=== PATIENT | male | born 1980 | race Caucasian/White ===

== ENCOUNTER 2018-11-24 22:37 | Emergency (ER) | payer SELFPAY ==
[2018-11-24 22:41] VITALS: BP 131/86; PULSE 112
[2018-11-24] MEDS ORDERED: Sodium Chloride 0.9% 10 ML Syringe FLUSH PRN (23:03)
--- NOTE | 2018-11-24 23:10 | EDM.PDOC ---
ED HPI GENERAL MEDICAL PROBLEM - General Chief Complaint: Neuro Symptoms/Deficits Stated Complaint: not feeling well Time Seen by Provider: 11/24/18 22:45 Source of Information: Reports: Patient History Limitations: Reports: No Limitations - History of Present Illness INITIAL COMMENTS - FREE TEXT/NARRATIVE: Patient is a 37-year-old who drove himself into the ER not feeling well states that he had not felt well all day was going to work and when he was driving from home to work felt that he could not make it and stopped in the ER at this time he states he's just not feeling well denies chest pain does have some shortness of breath but he states that is normal for him denies abdominal pain has had diarrhea for the last few days Onset: Gradual Duration: Day(s):, Getting Worse Location: Reports: Generalized Quality: Reports: Ache, Dull Severity: Moderate Improves with: Reports: None Worsens with: Reports: None Associated Symptoms: Reports: No Other Symptoms - Related Data Allergies Allergy/AdvReac Type Severity Reaction Status Date / Time No Known Allergies Allergy Verified 12/30/15 12:05 Home Meds: Home Meds Albuterol [Ventolin HFA] 2 inh INH Q4HR PRN 11/02/15 [History] Albuterol/Ipratropium [DuoNeb 3.0-0.5 MG/3 ML] 1 dose INH QID PRN 12/08/15 [ History] Lisinopril 20 mg PO DAILY 11/24/18 [History] Past Medical History HEENT History: Reports: Allergic Rhinitis Other HEENT History: Patient does wear glasses, Previous use of contact lenses, 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 c/o change in bowel habits, abdominal bloating, and lower abdominal pain. Genitourinary History: Reports: STD, Other (See Below) Other Genitourinary History: Chlamydia previously treated at age 16 Musculoskeletal History: Reports: Arthritis, Back Pain, Chronic, Fracture, Osteoarthritis, Other (See Below) Other Musculoskeletal History: Right ankle fracture with surgery as below at about age 14, chronic low back pain with mild L4-L5 disc prolapse by MRI 2008 Neurological History: Reports: None Psychiatric History: Reports: None Endocrine/Metabolic History: Reports: None Immunologic History: Reports: None Oncologic (Cancer) History: Reports: None Dermatologic History: Reports: None - Infectious Disease History Infectious Disease History: Reports: Chicken Pox - Past Surgical History HEENT Surgical History: Reports: Oral Surgery, Other (See Below) Male Surgical History: Reports: Circumcision, Other (See Below) - Past Imaging History Past Imaging History: Reports: MRI (Lumbar spine on 05/20/07) Social & Family History - Family History GI: Reports: None - Caffeine Use Caffeine Use: Reports: Energy Drinks, Soda - Living Situation & Occupation Living situation: Reports: Single, with Family Occupation: Employed ED ROS GENERAL - Review of Systems Review Of Systems: See Below Constitutional: Reports: Fatigue HEENT: Reports: No Symptoms Respiratory: Reports: Shortness of Breath Endocrine: Reports: No Symptoms GI/Abdominal: Reports: Nausea : Reports: No Symptoms Musculoskeletal: Reports: No Symptoms Skin: Reports: No Symptoms Neurological: Reports: No Symptoms Psychiatric: Reports: No Symptoms Hematologic/Lymphatic: Reports: No Symptoms Immunologic: Reports: No Symptoms ED EXAM, GENERAL - Physical Exam Exam: See Below Exam Limited By: No Limitations General Appearance: Alert, WD/WN, No Apparent Distress Ears: Normal External Exam, Normal Canal, Hearing Grossly Normal, Normal TMs Ear Exam: Bilateral Ear: Auricle Normal, Canal Normal, TM normal Nose: Normal Inspection, Normal Mucosa, No Blood Throat/Mouth: Normal Inspection, Normal Lips, Normal Teeth, Normal Gums, Normal Oropharynx, Normal Voice, No Airway Compromise Head: Atraumatic, Normocephalic Neck: Normal Inspection, Supple, Non-Tender, Full Range of Motion Respiratory/Chest: No Respiratory Distress, Decreased Breath Sounds, Wheezing, Prolonged Expiration Cardiovascular: Normal Peripheral Pulses, Regular Rate, Rhythm, No Edema, No Gallop, No JVD, No Murmur, No Rub GI/Abdominal: Normal Bowel Sounds, Non-Tender, Other (Diarrhea) Back Exam: Normal Inspection, Full Range of Motion, NT Extremities: Normal Inspection, Normal Range of Motion, Non-Tender, Normal Capillary Refill, No Pedal Edema Neurological: Alert, Oriented, CN II-XII Intact, Normal Cognition, Normal Gait, Normal Reflexes, No Motor/Sensory Deficits Psychiatric: Normal Affect, Normal Mood Skin Exam: Warm, Dry, Intact, Normal Color, No Rash Course - Vital Signs Last Recorded V/S: Last Vital Signs Temp 98.1 F 11/24/18 22:38 Pulse 112 H 11/24/18 22:38 Resp 20 11/24/18 22:38 BP 131/86 11/24/18 22:38 Pulse Ox 100 11/24/18 22:38 - Orders/Labs/Meds Labs: Laboratory Tests 11/24/18 11/24/18 11/24/18 Range/Units 11:55 23:21 23:21 WBC 6.8 (4.0-10.2) K/uL RBC 5.21 (4.33-5.41) M/uL Hgb 16.5 (13.1-16.8) g/dL Hct 47.2 (39.0-49.0) % MCV 90.6 (84.0-98.0) fL MCH 31.7 (28.2-33.3) pg MCHC 35.0 (31.7-36.0) g/dL RDW 13.1 (11.2-14.1) % Plt Count 159 (150-350) K/uL Neut % (Auto) 52.4 (45.0-80.0) % Lymph % (Auto) 35.5 (10.0-50.0) % [place] % (Auto) 8.1 (2.0-14.0) % Eos % (Auto) 3.7 (0.0-5.0) % Baso % (Auto) 0.3 (0.0-2.0) % Neut # (Auto) 3.54 (1.40-7.00) K/uL Lymph # (Auto) 2.40 (0.50-3.50) K/uL [place] # (Auto) 0.55 (0.00-1.00) K/uL Eos # (Auto) 0.25 (0.00-0.50) K/uL Baso # (Auto) 0.02 (0.00-0.20) K/uL D-Dimer, Quantitative (0-400) ng/mL Sodium 139 (136-145) mmol/L Potassium 3.7 (3.5-5.1) mmol/L Chloride 102 (98-107) mmol/L Carbon Dioxide 23.8 (21.0-32.0) mmol/L BUN 14 (7-18) mg/dL Creatinine 0.91 (0.51-1.17) mg/dL Est Cr Clr Drug Dosing 110.06 mL/min Estimated GFR (MDRD) > 60 mL/min Glucose 118 H (74-106) mg/dL Lactic Acid (0.4-2.0) mmol/L Calcium 8.7 (8.5-10.1) mg/dL Total Bilirubin 0.4 (0.2-1.0) mg/dL AST 43 H (15-37) U/L ALT 53 (12-78) U/L Alkaline Phosphatase 83 (46-116) IU/L Total Protein 7.6 (6.4-8.2) g/dL Albumin 4.0 (3.4-5.0) g/dL Specimen Type Urinvoid Urine Color Yellow Urine Appearance Clear Urine pH 6.0 (5.0-9.0) Ur Specific [place] 1.015 (1.005-1.030) Urine Protein Negative (NEGATIVE) mg/dL Urine Glucose (UA) Negative (NEGATIVE) mg/dL Urine Ketones Negative (NEGATIVE) mg/dL Urine Occult Blood Negative (NEGATIVE) Urine Nitrite Negative (NEGATIVE) Urine Bilirubin Negative (NEGATIVE) Urine Urobilinogen 0.2 (0.2-1.0) E.U./dL Ur Leukocyte Esterase Negative (NEGATIVE) Urine RBC Not seen /HPF Urine WBC Not seen /HPF Ur Epithelial Cells Rare /LPF Urine Bacteria Rare (NONE TO FEW) /HPF Ethyl Alcohol 0.187 H (0.000-0.080) g/dL 11/24/18 11/24/18 Range/Units 23:21 23:21 WBC (4.0-10.2) K/uL RBC (4.33-5.41) M/uL Hgb (13.1-16.8) g/dL Hct (39.0-49.0) % MCV (84.0-98.0) fL MCH (28.2-33.3) pg MCHC (31.7-36.0) g/dL RDW (11.2-14.1) % Plt Count (150-350) K/uL Neut % (Auto) (45.0-80.0) % Lymph % (Auto) (10.0-50.0) % [place] % (Auto) (2.0-14.0) % Eos % (Auto) (0.0-5.0) % Baso % (Auto) (0.0-2.0) % Neut # (Auto) (1.40-7.00) K/uL Lymph # (Auto) (0.50-3.50) K/uL [place] # (Auto) (0.00-1.00) K/uL Eos # (Auto) (0.00-0.50) K/uL Baso # (Auto) (0.00-0.20) K/uL D-Dimer, Quantitative < 100 (0-400) ng/mL Sodium (136-145) mmol/L Potassium (3.5-5.1) mmol/L Chloride (98-107) mmol/L Carbon Dioxide (21.0-32.0) mmol/L BUN (7-18) mg/dL Creatinine (0.51-1.17) mg/dL Est Cr Clr Drug Dosing mL/min Estimated GFR (MDRD) mL/min Glucose (74-106) mg/dL Lactic Acid 2.8 H (0.4-2.0) mmol/L Calcium (8.5-10.1) mg/dL Total Bilirubin (0.2-1.0) mg/dL AST (15-37) U/L ALT (12-78) U/L Alkaline Phosphatase (46-116) IU/L Total Protein (6.4-8.2) g/dL Albumin (3.4-5.0) g/dL Specimen Type Urine Color Urine Appearance Urine pH (5.0-9.0) Ur Specific [place] (1.005-1.030) Urine Protein (NEGATIVE) mg/dL Urine Glucose (UA) (NEGATIVE) mg/dL Urine Ketones (NEGATIVE) mg/dL Urine Occult Blood (NEGATIVE) Urine Nitrite (NEGATIVE) Urine Bilirubin (NEGATIVE) Urine Urobilinogen (0.2-1.0) E.U./dL Ur Leukocyte Esterase (NEGATIVE) Urine RBC /HPF Urine WBC /HPF Ur Epithelial Cells /LPF Urine Bacteria (NONE TO FEW) /HPF Ethyl Alcohol (0.000-0.080) g/dL Meds: Medications Discontinued Medications Generic Name Dose Route Start Last Admin Trade Name Freq PRN Reason Stop Dose Admin Sodium Chloride 1,000 mls @ 250 mls/hr 11/24/18 23:15 11/24/18 23:27 Normal Saline IV 250 mls/hr ASDIRECTED GLENIS Administration Sodium Chloride 1,000 mls @ 150 mls/hr 11/24/18 23:30 Normal Saline IV ASDIRECTED GLENIS Ondansetron HCl 8 mg 11/25/18 00:15 11/25/18 00:23 Zofran IVPUSH 8 mg Q8H GLENIS Administration Pantoprazole Sodium 40 mg 11/25/18 00:03 11/25/18 00:23 Protonix Iv IVPUSH 11/25/18 00:04 40 mg ONETIME ONE Administration Sodium Chloride 10 ml 11/24/18 23:03 Saline Flush FLUSH ASDIRECTED PRN Keep Vein Open Departure - Departure Time of Disposition: 03:35 Disposition: Home, Self-Care 01 Condition: Fair Clinical Impression: COPD (chronic obstructive pulmonary disease) Qualifiers: COPD type: unspecified COPD Qualified Code(s): J44.9 - Chronic obstructive pulmonary disease, unspecified - Discharge Information *PRESCRIPTION DRUG MONITORING PROGRAM REVIEWED*: No *COPY OF PRESCRIPTION DRUG MONITORING REPORT IN PATIENT YOLANDA: No Referrals: PCP,None [Primary Care Provider] - Forms: ED Department Discharge Care Plan Goals: At this time patient should be seen by primary for follow-up he would need to be referred to pulmonary secondary to history of COPD he will need proper adjustments of medications would probably benefit from a LABA and a LAMA also check for anti-trypsin deficiency and quitting smoking he also needs to address issues of Alcohol use.
[2018-11-24] MEDS ORDERED: Sodium Chloride 0.9% 1,000 ML IV SCH ×2 (23:15→23:30)
[2018-11-24 23:39] LABS: CHLORIDE,CL 102 mmol/L (98-107); SODIUM,NA 139 mmol/L (136-145)
[2018-11-25] MEDS ORDERED: Pantoprazole 40 MG Vial IVPUSH ONE (00:03)
[2018-11-25] MEDS ORDERED: Ondansetron 4 MG/2 ML SDV IVPUSH SCH (00:15)
== END 2018-11-25 03:35 | disposition home or self-care (01) ==
LOC: LL.ED 22:37
DX: J44.9 Chronic obstructive pulmonary disease, unspecified (principal); Z79.899 Other long term (current) drug therapy
CPT/HCPCS: 36415; 70450; 71046; 80053; 81001; 83605; 85025; 85379; 96361; 96374; 96375; 99284; C9113; G0480; J2405; J7030

== ENCOUNTER 2019-08-25 00:07 | Emergency (ER) | payer MEDICAID, OTHER ==
[2019-08-25] MEDS: LORazepam 2 MG/ML SDV IVPUSH ONE ×2 (00:19→01:58)
[2019-08-25] MEDS: Haloperidol Lactate 5 MG/ML SDV IVPUSH ONE ×2 (00:19→01:57)
[2019-08-25] MEDS: diphenhydrAMINE 50 MG/ML SDV IVPUSH ONE (00:19)
[2019-08-25 00:49] LABS: CHLORIDE,CL 104 mmol/L (98-107); SODIUM,NA 139 mmol/L (136-145)
--- NOTE | 2019-08-25 01:13 | EDM.PDOC ---
ED HPI GENERAL MEDICAL PROBLEM - General Chief Complaint: Neurological Problem Stated Complaint: Neuro Problems Time Seen by Provider: 08/25/19 00:28 Source of Information: Reports: Family History Limitations: Reports: Altered Mental Status - History of Present Illness INITIAL COMMENTS - FREE TEXT/NARRATIVE: Patient brought to ER via EMS after noted by family to have altered LOC. Noted to be on couch/staring into space. When mother asked if he needed help he was able to say "yes". Mother is in ER and able to help somewhat with patient's past medical history. She mentioned that he was recently started on Vanco for C-Diff and Nystatin for thrush. Only just got the medicine within the last several days. Also Rx for Zofran prn nausea when [facility] contacted to verify meds/patient's last visit to [facility]. She has never seen patient like this. He is known to drink ETOH. No obvious known drug use otherwise per Mom. Noted on previous EMR that he admitted to THC use in past. No other information available other than patient agitated and somewhat combative upon arrival. 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 with symptoms starting at about 2000 Cardiovascular History: Reports: None, High Cholesterol, Hypertension Other Cardiovascular History: Patient does not know his cholesterol status Respiratory History: Reports: Asthma, Other (See Below) Other Respiratory History: Seasonal allergic rhinitis Gastrointestinal History: Reports: Other (See Below) Other Gastrointestinal History: Diagnosis of C.Diff infection August 2019 Genitourinary History: Reports: STD, Other (See Below) Other Genitourinary History: Chlamydia previously treated at age 16 Musculoskeletal History: Reports: Arthritis, Back Pain, Chronic, Fracture, Osteoarthritis, Other (See Below) Other Musculoskeletal History: Right ankle fracture with surgery as below at about age 14, chronic low back pain with mild L4-L5 disc prolapse by MRI 2007 Neurological History: Reports: None Psychiatric History: Reports: None Endocrine/Metabolic History: Reports: None Immunologic History: Reports: None Oncologic (Cancer) History: Reports: None Dermatologic History: Reports: None - Infectious Disease History Infectious Disease History: Reports: Chicken Pox - Past Surgical History HEENT Surgical History: Reports: Oral Surgery, Other (See Below) Male Surgical History: Reports: Circumcision, Other (See Below) - Past Imaging History Past Imaging History: Reports: MRI (Lumbar spine on 05/20/07) Social & Family History - Family History GI: Reports: None - Caffeine Use Caffeine Use: Reports: Energy Drinks, Soda - Alcohol Use Alcohol Use History: Yes Total Drinks Per Week Comment: Patient unable to give ETOH use history but per patient's mom he is heavy user of ETOH - Recreational Drug Use Recreational Drug Last Use: Unknown - Living Situation & Occupation Living situation: Reports: Single, with Family Occupation: Employed ED ROS GENERAL - Review of Systems Review Of Systems: Unable To Obtain Reason Not Obtained: Patient with altered LOC ED EXAM, GENERAL - Physical Exam Exam: See Below Exam Limited By: Combative/Threatening (when aroused) General Appearance: Other (Sedated/No obvious acute distress) Eye Exam: Bilateral Eye: EOMI, PERRL (Pupils constrict to light then rebound) Ears: Hearing Grossly Normal (arouses to voice) Ear Exam: Bilateral Ear: Auricle Normal, Canal Normal Nose: No: Nasal Deformity, Nasal Swelling, Nasal Drainage Throat/Mouth: Normal Lips, No Airway Compromise Head: Atraumatic, Normocephalic Neck: Supple Respiratory/Chest: No Respiratory Distress, Lungs Clear, Normal Breath Sounds, No Accessory Muscle Use Cardiovascular: No Edema, Tachycardia Peripheral Pulses: 2+: Radial (L), Radial (R) GI/Abdominal: Normal Bowel Sounds, Soft, Non-Tender, No Distention (Male) Exam: Deferred Rectal (Males) Exam: Deferred Back Exam: No: Muscle Spasm EKG INTERPRETATION EKG Date: 08/25/19 Time: 00:41 Rhythm: Other (sinus tach) Rate (Beats/Min): 103 [place]: Normal P-Wave: Present QRS: Normal ST-T: Other (non-specific ST changes noted multiple leads) Course - Vital Signs Last Recorded V/S: Last Vital Signs Temp 37.0 C 08/25/19 00:31 Pulse 104 H 08/25/19 00:31 Resp 14 08/25/19 00:31 BP 147/92 H 08/25/19 00:31 Pulse Ox 99 08/25/19 00:31 - Orders/Labs/Meds Orders: Active Orders 24 hr Category Date Time Status EKG Documentation Completion [RC] ASDIRECTED Care 08/25/19 00:31 Active Head wo Cont [CT] Stat Exams 08/25/19 00:10 Taken DRUG SCREEN, URINE [URCHEM] Stat Lab 08/25/19 00:47 Ordered UA W/MICROSCOPIC [URIN] Stat Lab 08/25/19 00:48 Ordered Sodium Chloride 0.9% [Normal Saline] 1,000 ml Med 08/25/19 01:01 Ordered IV .BOLUS Medication Orders Sodium Chloride (Normal Saline) 1,000 mls @ 999 mls/hr IV .BOLUS ONE Stop: 08/25/19 02:01 Labs: Laboratory Tests 08/25/19 08/25/19 08/25/19 Range/Units 00:23 00:23 00:29 WBC 4.5 (4.0-10.2) K/uL RBC 4.22 L (4.33-5.41) M/uL Hgb 13.8 D (13.1-16.8) g/dL Hct 40.8 (39.0-49.0) % MCV 96.7 D (84.0-98.0) fL MCH 32.7 (28.2-33.3) pg MCHC 33.8 (31.7-36.0) g/dL RDW 14.5 H (11.2-14.1) % Plt Count 237 D (150-350) K/uL Neut % (Auto) 66.6 (45.0-80.0) % Lymph % (Auto) 24.2 (10.0-50.0) % [place] % (Auto) 7.8 (2.0-14.0) % Eos % (Auto) 0.7 (0.0-5.0) % Baso % (Auto) 0.7 (0.0-2.0) % Neut # (Auto) 2.98 (1.40-7.00) K/uL Lymph # (Auto) 1.08 (0.50-3.50) K/uL [place] # (Auto) 0.35 (0.00-1.00) K/uL Eos # (Auto) 0.03 (0.00-0.50) K/uL Baso # (Auto) 0.03 (0.00-0.20) K/uL Sodium 139 (136-145) mmol/L Potassium 4.0 (3.5-5.1) mmol/L Chloride 104 (98-107) mmol/L Carbon Dioxide 21.2 (21.0-32.0) mmol/L BUN 10 (7-18) mg/dL Creatinine 0.88 (0.51-1.17) mg/dL Est Cr Clr Drug Dosing TNP Estimated GFR (MDRD) > 60 mL/min Glucose 146 H (74-106) mg/dL Lactic Acid 5.1 H (0.4-2.0) mmol/L Calcium 8.6 (8.5-10.1) mg/dL Magnesium 2.2 (1.8-2.4) mg/dL Total Bilirubin 0.3 (0.2-1.0) mg/dL AST 62 H (15-37) U/L ALT 59 (12-78) U/L Alkaline Phosphatase 79 (46-116) IU/L Troponin I (0.000-0.056) ng/mL Total Protein 7.1 (6.4-8.2) g/dL Albumin 3.5 (3.4-5.0) g/dL Ethyl Alcohol 0.069 (0.000-0.080) g/dL 08/25/19 Range/Units 00:29 WBC (4.0-10.2) K/uL RBC (4.33-5.41) M/uL Hgb (13.1-16.8) g/dL Hct (39.0-49.0) % MCV (84.0-98.0) fL MCH (28.2-33.3) pg MCHC (31.7-36.0) g/dL RDW (11.2-14.1) % Plt Count (150-350) K/uL Neut % (Auto) (45.0-80.0) % Lymph % (Auto) (10.0-50.0) % [place] % (Auto) (2.0-14.0) % Eos % (Auto) (0.0-5.0) % Baso % (Auto) (0.0-2.0) % Neut # (Auto) (1.40-7.00) K/uL Lymph # (Auto) (0.50-3.50) K/uL [place] # (Auto) (0.00-1.00) K/uL Eos # (Auto) (0.00-0.50) K/uL Baso # (Auto) (0.00-0.20) K/uL Sodium (136-145) mmol/L Potassium (3.5-5.1) mmol/L Chloride (98-107) mmol/L Carbon Dioxide (21.0-32.0) mmol/L BUN (7-18) mg/dL Creatinine (0.51-1.17) mg/dL Est Cr Clr Drug Dosing Estimated GFR (MDRD) mL/min Glucose (74-106) mg/dL Lactic Acid (0.4-2.0) mmol/L Calcium (8.5-10.1) mg/dL Magnesium (1.8-2.4) mg/dL Total Bilirubin (0.2-1.0) mg/dL AST (15-37) U/L ALT (12-78) U/L Alkaline Phosphatase (46-116) IU/L Troponin I 0.000 (0.000-0.056) ng/mL Total Protein (6.4-8.2) g/dL Albumin (3.4-5.0) g/dL Ethyl Alcohol (0.000-0.080) g/dL Meds: Medications Generic Name Dose Route Start Last Admin Trade Name Freq PRN Reason Stop Dose Admin Sodium Chloride 1,000 mls @ 999 mls/hr 08/25/19 01:01 Normal Saline IV 08/25/19 02:01 .BOLUS ONE Discontinued Medications Generic Name Dose Route Start Last Admin Trade Name Freq PRN Reason Stop Dose Admin Diphenhydramine HCl 50 mg 08/25/19 00:13 08/25/19 00:19 Benadryl IVPUSH 08/25/19 00:14 50 mg ONETIME ONE Administration Haloperidol Lactate 5 mg 08/25/19 00:13 08/25/19 00:19 Haldol IVPUSH 08/25/19 00:14 5 mg ONETIME ONE Administration Haloperidol Lactate 5 mg 08/25/19 00:57 Haldol IVPUSH 08/25/19 00:58 ONETIME ONE Lorazepam 2 mg 08/25/19 00:12 08/25/19 00:19 Ativan IVPUSH 08/25/19 00:13 2 mg ONETIME ONE Administration - Radiology Interpretation Free Text/Narrative:: CT of head negative for acute change per Radiology/[facility] - Re-Assessments/Exams Free Text/Narrative Re-Assessment/Exam: 08/25/19 01:39 Unknown as to etiology of altered LOC. Patient has reported to his mother in past that he wonders if he has a seizure problems. Notes losing track of a day of time. Sometimes finds self on floor after apparent fall/bumping head/breaking glasses. May be experiencing seizure activity/post-ictal. May be side effect linked to recently started medications as listed in HPI. Drug screen negative for common drugs of abuse. WBC normal. Lactic acid elevated at 5.1 ETOH elevated at 0.069 Troponin negative Radiology recommended MRI given history/findings. Call placed to [facility] and arrangements made to transfer patient to their ER. Accepting MD Hernández. Departure - Departure Time of Disposition: 01:37 Disposition: DC/Tfer to Acute Hospital 02 Condition: Fair Clinical Impression: Delirium, ETOH abuse - Discharge Information *PRESCRIPTION DRUG MONITORING PROGRAM REVIEWED*: Not Applicable *COPY OF PRESCRIPTION DRUG MONITORING REPORT IN PATIENT YOLANDA: Not Applicable Referrals: Marlene Mina PA-C [Primary Care Provider] - Sepsis Event Note - Evaluation Sepsis Screening Result: No Definite Risk - Focused Exam Vital Signs: Vital Signs Temp Pulse Resp BP Pulse Ox 08/25/19 00:31 37.0 C 104 H 14 147/92 H 99 Date Exam was Performed: 08/25/19 Time Exam was Performed: 01:07 - My Orders Last 24 Hours: My Active Orders 08/25/19 00:10 Head wo Cont [CT] Stat 08/25/19 00:31 EKG Documentation Completion [RC] ASDIRECTED 08/25/19 00:47 DRUG SCREEN, URINE [URCHEM] Stat 08/25/19 00:48 UA W/MICROSCOPIC [URIN] Stat 08/25/19 01:01 Sodium Chloride 0.9% [Normal Saline] 1,000 ml IV .BOLUS - Assessment/Plan Last 24 Hours: My Active Orders 08/25/19 00:10 Head wo Cont [CT] Stat 08/25/19 00:31 EKG Documentation Completion [RC] ASDIRECTED 08/25/19 00:47 DRUG SCREEN, URINE [URCHEM] Stat 08/25/19 00:48 UA W/MICROSCOPIC [URIN] Stat 08/25/19 01:01 Sodium Chloride 0.9% [Normal Saline] 1,000 ml IV .BOLUS
[2019-08-25 01:32] LABS: BARBITURATE SCREEN,URINE NEGATIVE (NEGATIVE); BENZODIAZEPINES SCREEN,URINE NEGATIVE (NEGATIVE); EDDP,URINE SCREEN NEGATIVE (NEGATIVE); TCA SCREEN,URINE NEGATIVE (NEGATIVE); THC SCREEN,URINE 50 NG/ML NEGATIVE (NEGATIVE)
[2019-08-25] MEDS: Diltiazem 25 MG/5 ML SDV IVPUSH ONE (01:57)
[2019-08-25] MEDS: Sodium Chloride 0.9% 1,000 ML IV ONE (01:58)
[2019-08-25 06:05] VITALS: BP 150/95; PULSE 115
== END 2019-08-25 02:25 ==
LOC: LL.ED 00:07
DX: F10.121 Alcohol abuse with intoxication delirium (principal); E78.00 Pure hypercholesterolemia, unspecified; J45.909 Unspecified asthma, uncomplicated; M19.90 Unspecified osteoarthritis, unspecified site; I10 Essential (primary) hypertension; Z79.899 Other long term (current) drug therapy
CPT/HCPCS: 36415; 70450; 80053; 80305-QW; 80307; 81001; 83605; 83735; 84484; 85025; 93005; 96374; 96375; 96376; 99285-25; J1200; J1630; J2060; J3490; J7030

== ENCOUNTER 2022-11-06 15:56 | Emergency (ER) | payer BC ==
[2022-11-06] MEDS ORDERED: methylPREDNISolone Sodium Succinate 125 MG/2 ML SDV IVPUSH ONE (15:57)
[2022-11-06] MEDS ORDERED: Sodium Chloride 0.9% 10 ML Syringe FLUSH PRN (15:57)
[2022-11-06] MEDS ORDERED: EPINEPHrine 1 MG/ML SDV IM ONE (16:13)
[2022-11-06 16:49] LABS: ALBUMIN 4.2 g/dL (3.4-5.0); BILIRUBIN TOTAL 1.9 mg/dL (0.2-1.0); CALCIUM 8.7 mg/dL (8.5-10.1); CREATININE 1.04 mg/dL (0.51-1.17); EST CRCL DRUG DOSING (CG) 92.53 mL/min; POTASSIUM,K 4.1 mmol/L (3.5-5.1)
[2022-11-06 16:50] LABS: ANION GAP 19.1 meq/L (7-15)
[2022-11-06 16:52] LABS: BASOPHILS ABSOLUTE AUTO 0.01 K/uL (0.00-0.20); BASOPHILS PERCENT AUTO 0.2 % (0.0-2.0); EOSINOPHILS ABSOLUTE AUTO 0.16 K/uL (0.00-0.50); EOSINOPHILS PERCENT AUTO 2.8 % (0.0-5.0); HEMATOCRIT 41.2 % (39.0-49.0); HEMOGLOBIN 14.2 g/dL (13.1-16.8); LYMPHOCYTES ABSOLUTE AUTO 0.97 K/uL (0.50-3.50); LYMPHOCYTES PERCENT AUTO 17.2 % (10.0-50.0); MEAN CORPUSCULAR HEMOGLOBIN 31.8 pg (28.2-33.3); MEAN CORPUSCULAR HGB CONC 34.5 g/dL (31.7-36.0); MEAN CORPUSCULAR VOLUME 92.2 fL (84.0-98.0); MONOCYTES ABSOLUTE AUTO 0.94 K/uL (0.00-1.00); MONOCYTES PERCENT AUTO 16.7 % (2.0-14.0); NEUTROPHILS ABSOLUTE AUTO 3.56 K/uL (1.40-7.00); NEUTROPHILS PERCENT AUTO 63.1 % (45.0-80.0); PLATELET COUNT,PLT 114 K/uL (150-350); RED BLOOD CELL COUNT 4.47 M/uL (4.33-5.41); RED CELL DISTRIBUTION WIDTH 12.9 % (11.2-14.1); WHITE BLOOD CELL COUNT,WBC 5.6 K/uL (4.0-10.2)
[2022-11-06 19:37] VITALS: BP 152/87; PULSE 92
== END 2022-11-06 18:27 | disposition home or self-care (01) ==
LOC: LL.ED 15:56
DX: S01.552A Open bite of oral cavity, initial encounter (principal); I10 Essential (primary) hypertension; J45.909 Unspecified asthma, uncomplicated
CPT/HCPCS: 36415; 80053; 85025; 96372; 96374; 99283; 99283-25; J0171; J2930

== ENCOUNTER 2023-09-22 06:37 | Emergency (ER) | payer BC ==
[2023-09-22 07:31] LABS: BASOPHILS ABSOLUTE AUTO 0.03 K/uL (0.00-0.20); BASOPHILS PERCENT AUTO 0.4 % (0.0-2.0); EOSINOPHILS ABSOLUTE AUTO 0.51 K/uL (0.00-0.50); EOSINOPHILS PERCENT AUTO 6.2 % (0.0-5.0); HEMATOCRIT 46.4 % (39.0-49.0); LYMPHOCYTES ABSOLUTE AUTO 2.38 K/uL (0.50-3.50); LYMPHOCYTES PERCENT AUTO 28.7 % (10.0-50.0); MEAN CORPUSCULAR HEMOGLOBIN 31.8 pg (28.2-33.3); MEAN CORPUSCULAR HGB CONC 34.5 g/dL (31.7-36.0); MEAN CORPUSCULAR VOLUME 92.2 fL (84.0-98.0); MONOCYTES ABSOLUTE AUTO 0.59 K/uL (0.00-1.00); MONOCYTES PERCENT AUTO 7.1 % (2.0-14.0); NEUTROPHILS ABSOLUTE AUTO 4.77 K/uL (1.40-7.00); NEUTROPHILS PERCENT AUTO 57.6 % (45.0-80.0); PLATELET COUNT,PLT 184 K/uL (150-350); RED BLOOD CELL COUNT 5.03 M/uL (4.33-5.41); WHITE BLOOD CELL COUNT,WBC 8.3 K/uL (4.0-10.2)
[2023-09-22 07:49] VITALS: BP 128/94; PULSE 89
[2023-09-22 07:53] LABS: BILIRUBIN TOTAL 0.4 mg/dL (0.2-1.0); CALCIUM 8.9 mg/dL (8.5-10.1); CARBON DIOXIDE,CO2 27.7 mmol/L (21.0-32.0); CREATININE 0.86 mg/dL (0.51-1.17); EST CRCL DRUG DOSING (CG) 110.75 mL/min; POTASSIUM,K 3.4 mmol/L (3.5-5.1); PROTEIN TOTAL,TP 8.4 g/dL (6.4-8.2)
[2023-09-22 07:54] LABS: ANION GAP 16.7 meq/L (7-15)
[2023-09-22] MEDS: Colchicine 0.6 MG Tab PO ONE ×2 (08:04→09:02)
[2023-09-22] MEDS: Ketorolac 15 MG/ML SDV IVPUSH ONE (08:33)
[2023-09-22] MEDS: Sodium Chloride 0.9% 10 ML Syringe FLUSH PRN (08:34)
[2023-09-22] MEDS: Potassium Chloride 20 MEQ Tab.ER PO ONE (08:34)
[2023-09-22] MEDS: oxyCODONE 5 MG Tab PO ONE (08:35)
[2023-09-22] MEDS: Acetaminophen 500 MG Tab PO ONE (08:35)
== END 2023-09-22 09:10 | disposition home or self-care (01) ==
LOC: LL.ED 06:37
DX: M10.371 Gout due to renal impairment, right ankle and foot (principal); I10 Essential (primary) hypertension; J44.9 Chronic obstructive pulmonary disease, unspecified; F17.200 Nicotine dependence, unspecified, uncomplicated; Z79.51 Long term (current) use of inhaled steroids; Z79.899 Other long term (current) drug therapy
CPT/HCPCS: 36415; 73630-RT; 80053; 80307; 83605; 84550; 85025; 96374; 99283-25; A9270-GY; J1885; J3490